=== PATIENT | male | born 1945 | race Caucasian/White ===

== ENCOUNTER 2018-04-26 10:01 | Outpatient (CLI) | payer MEDICARE, OTHER | END 2018-04-26 23:59 | disposition home health service (06) | LOC: WOU 10:01 | PROVIDERS: ATTEND Podiatrist Foot & Ankle Surgery | DX: E11.621 Type 2 diabetes mellitus with foot ulcer (principal); L97.412 Non-pressure chronic ulcer of right heel and midfoot with fat layer exposed; L97.512 Non-pressure chronic ulcer of other part of right foot with fat layer exposed; L97.513 Non-pressure chronic ulcer of other part of right foot with necrosis of muscle; I73.9 Peripheral vascular disease, unspecified; E11.42 Type 2 diabetes mellitus with diabetic polyneuropathy; Z89.411 Acquired absence of right great toe; Z89.412 Acquired absence of left great toe; I11.0 Hypertensive heart disease with heart failure; I50.9 Heart failure, unspecified; Z87.891 Personal history of nicotine dependence | CPT/HCPCS: 11042; 11043; 82962-TC; A6402 ==